=== PATIENT | male | born 1955 | race Caucasian/White ===

== ENCOUNTER 2016-07-16 11:43 | Emergency (ER) | payer BC ==
--- NOTE | ~2016-07-16 | US115 ---
[facility] A Service of [facility] RADIOLOGY TEXT RESULTS PATIENT: FAWAD LUND LOCATION: SED : 59 UNIT #: [id number] AGE: [address]: Husam Stephenson DO SEX: M ORDER DR: [id number] [place] [id number] E MR#: [id number] Acc #: [id number] NAME: FAWAD LUND. : 1955 SEX: M STUDY DATE/TIME: 07/16/2016 12:49 UNIT: SED ROOM: STUDY DESCRIPTION: US Scrotum and Contents Attending Physician: (Er) Husam Stephenson Ordering Physician: AugustoEr) Husam Stephenson Primary Care Physician: Delano Smith M.D. MEDICAL IMAGING REPORT This report is preliminary unless electronic signature is present. EXAM Scrotal ultrasound. DATE OF EXAM 07/16/2016, at 12:49. INDICATIONS Left testicular pain for the last 4 hours with nausea. No trauma. Symptoms have since resolved. TECHNIQUE Hanson-scale, color flow, and spectral Doppler waveform analysis was performed of the scrotum and contents. COMPARISON No comparison. FINDINGS Both testicles show perfusion by Doppler. There is no torsion. There are no intratesticular masses. The right testicle and epididymis are normal. There is a moderate sized hydrocele on the right. On the left side, there is intratesticular cyst measuring about 5 mm in size. The left testicle is hyperemic relative to the right. This would suggest orchitis. The left epididymis is normal. There is a small left hydrocele. IMPRESSION 1. No torsion or testicular mass identified. 2. Mildly hyperemic left testicle suggesting orchitis. 3. Bilateral hydroceles, right larger than left. Dictated by... Kamlesh Amador Jr., M.D. [facility] A Service [facility] RADIOLOGY TEXT RESULTS PATIENT: FAWAD LUND LOCATION: SED : 59 UNIT #: [id number] AGE: [address]: Husam Stephenson DO SEX: M ORDER DR: THIS IS AN ELECTRONICALLY VERIFIED REPORT Kamlesh Amador Jr., M.D. at 07/19/2016 8:00 AM JUSTIN/joshua TD: 07/16/2016 15:44 JOB #: [id number] MEDICAL IMAGING REPORT Page 1 of 1
[~2016-07-16 11:43] MED LIST: FLOMAX0.4 M1 PO; LISINOPRIL
[2016-07-16 11:53] LABS: BASOPHIL# 0.1 X10e3 (0-0.3); BASOPHIL% 0.5 % (0-2.5); EOSINOPHIL# 0.2 X10e3 (0-0.7); EOSINOPHIL% 1.3 % (0.0-7.0); HEMATOCRIT 44.6 % (38.0-50.0); HEMOGLOBIN 15.2 gm/dL (13.0-16.0); LYMPHOCYTE# 1.6 X10e3 (1.0-3.5); LYMPHOCYTE% 12.1 % (17.0-45.0); MEAN CELL VOLUME 95.3 FL (83-96); MEAN CORPUSCULAR HEMOGLOBIN 32.5 PG (28-34); MEAN CORPUSCULAR HGB CONC 34.1 g/dL (30-36); MEAN PLATELET VOLUME 7.6 FL (6.5-11.5); MONOCYTE# 0.7 X10e3 (0-1.0); MONOCYTE% 5.7 % (3.0-12.0); NEUTROPHIL# 10.3 X10e3 (1.5-7.1); NEUTROPHIL% 80.4 % (40-75); PLATELET COUNT 211 X10e3 (140-420); RED BLOOD COUNT 4.68 X10e (3.90-5.60); RED CELL DISTRIBUTION WIDTH 13.6 % (11.0-15.5); WHITE BLOOD COUNT 12.8 X10e3 (4.0-10.5)
[2016-07-16 11:54] LABS: DIFF IND NO
[2016-07-16 12:09] LABS: ALBUMIN SERUM 4.3 g/dL (3.5-5.0); BILIRUBIN, DIRECT 0.2 mg/dL (0.0-0.2); BILIRUBIN,INDIRECT 0.7 mg/dL (0.0-0.9); BILIRUBIN,TOTAL 0.9 mg/dL (0.2-2.0); CREATININE SERUM 0.8 mg/dL (0.6-1.4); GLOM FILT RATE Estimated 98.5 mL/min (>60); POTASSIUM 4.7 mmol/L (3.5-5.1); PROTEIN TOTAL SERUM 7.2 g/dL (6.0-8.3)
[2016-07-16 13:46] LABS: URINE SOURCE CLEAN CATCH
[2016-07-16 13:48] LABS: URINE APPEARANCE CLEAR; URINE BILIRUBIN NEG (NEG); URINE BLOOD 3+ (NEG); URINE COLOR YELLOW; URINE GLUCOSE NEG (NORM); URINE KETONE NEG (NEG); URINE LEUKOCYTE ESTERASE TRACE (NEG); URINE NITRATE NEG (NEG); URINE PH 6.5 (5-8); URINE PROTEIN TRACE (NEG); URINE SPECIFIC GRAVITY 1.015 (1.003-1.035); URINE UROBILINOGEN 0.2 MG/DL (NORM)
[2016-07-16 13:49] LABS: MICRO INDICATED? YES
[2016-07-16 13:58] LABS: URINE RBC 100-200 /[HPF] (0-2)
[2016-07-16 13:59] LABS: CULTURE INDICATED? YES; URINE BACTERIA 1+ (NEG); URINE GRANULAR CAST 0-2 /[HPF]; URINE HYALINE CAST 0-2 /[HPF]; URINE MUCUS PRESENT; URINE SQUAMOUS EPITHELIAL CELL FEW /[HPF]
[2016-07-19 08:13] LABS: CHLAMYDIA TRACH Not Detected (Not Detected); N GONOR Not Detected (Not Detected)
== END 2016-07-16 14:33 | disposition home or self-care (01) ==
LOC: SED 11:43
PROVIDERS: Emergency Medicine
DX: N43.3 Hydrocele, unspecified (principal); N45.2 Orchitis; Z88.5 Allergy status to narcotic agent
CPT/HCPCS: 76870; 80048; 80076; 81003; 85025; 87086; 87491; 87591; 93976; 96372; 99284; J0696

== ENCOUNTER → 2016-08-23 | Outpatient (CLI) | payer BC ==
[~2016-08-23] MED LIST changes: +BACTRIM PO; +OXYCODONE PO
--- NOTE | ~2016-08-23 | CT3 ---
[facility] A Service of [facility] & [facility] RADIOLOGY TEXT RESULTS PATIENT: FAWAD LUND LOCATION: [facility] : 59 UNIT #: [id number] AGE: [address]: NATALIE LEACH APRN SEX: M ORDER DR: [id number] [address] [address] [id number] O MR#: [id number] Acc #: [id number] NAME: FAWAD LUND : 1955 SEX: M STUDY DATE/TIME: 08/23/2016 15:19 UNIT: [facility] ROOM: STUDY DESCRIPTION: CT Abd and Pelv WWo Cont Attending Physician: Natalie Leach Aprn Referring Physician: Natalie Leach Aprn Ordering Physician: Michael Mcmillan M.D. Primary Care Physician: Natalie Leach Aprn MEDICAL IMAGING REPORT This report is preliminary unless electronic signature is present. EXAM CT of the abdomen and pelvis without and with contrast INDICATIONS This patient has had blood in the urine and left abdominal pain radiating to the left testicle for 1 month. Patient had a prior ultrasound on July 16, 2016, which suggested orchitis within the left testicle. TECHNIQUE Axial precontrast imaging was obtained through the abdomen and pelvis followed by arterial and 90-second delayed phase imaging through the kidneys and 5-minute delayed phase imaging through the abdomen and pelvis. This CT exam was performed with one or more of the following radiation dose reduction techniques: Automatic exposure control, adjustment of mA and/or kV according to patient size, and iterative reconstruction. I do think the patient has some background emphysematous changes. This patient is noted to have a stone at the left UPJ. However, it does not appear to be associated with any hydronephrosis. This stone measures up to 1 cm in size. Distal to this, the left ureter is decompressed; no stones are identified on the right and there are no distal ureteral or bladder stones identified. A few tiny low-attenuation lesions are seen within the left kidney, which are really too small to accurately characterize but are favored to represent cysts. Single renal arteries are identified bilaterally, and there may be some minimal narrowing at the origins of both renal arteries. There are single renal collecting systems identified bilaterally. Urinary bladder appears unremarkable. There is a small hiatal hernia. Proximal small bowel appears unremarkable, as are the adrenal glands. Gallbladder is within normal limits, as is the spleen. No focal hepatic lesions are identified. Spleen is within normal limits, as is the pancreas. I do not see any free STS. [facility] A Service of [facility] RADIOLOGY TEXT RESULTS PATIENT: FAWAD LUND LOCATION: [facility] : 59 UNIT #: [id number] AGE: [address]: NATALIE LEACH BIOLOGICAL CHEMIST SEX: M ORDER DR: fluid or adenopathy within the abdomen. There is a small fat-containing umbilical hernia. There is some colonic diverticulosis without evidence of diverticulitis. There are some dystrophic calcifications seen within the prostate gland, no free fluid or adenopathy is seen within the pelvis. Review of bony windows does not demonstrate any aggressive osseous abnormalities. IMPRESSION 1. This patient has a 1-cm nonobstructing stone identified at the left ureteropelvic junction. No distal ureteral or bladder stones are seen, and there are no stones identified on the right. 2. A few scattered low-attenuation lesions are seen within the left kidney, which are favored to represent cysts, although they are too small to accurately characterize. No suspicious renal masses or bladder masses are seen. 3. Also noted but not mentioned in the report is the suggestion of some subtle periureteral soft tissue stranding. Correlation with urinalysis and urine cultures is suggested. Please see the body of the report for any other additional incidental findings. Dictated by... Sharyn Hahn M.D. THIS IS AN ELECTRONICALLY VERIFIED REPORT Sharyn Hahn M.D. at 09/01/2016 3:40 PM AFF/psc TD: 08/30/2016 20:07 JOB #: [id number] MEDICAL IMAGING REPORT Page 1 of 1
[2016-08-23 15:15] LABS: POC - CREATININE 1.11 mg/dL (0.64-1.27); POC - GFR >60.0 mL/min (>60)
== END | disposition home or self-care (01) ==
LOC: SCT 15:00
PROVIDERS: Nurse Practitioner Family
DX: R10.9 Unspecified abdominal pain (principal); R31.9 Hematuria, unspecified; N20.1 Calculus of ureter; N28.89 Other specified disorders of kidney and ureter
CPT/HCPCS: 74178; 82565; Q9967

== ENCOUNTER 2016-09-19 16:41 | Emergency (ER) | payer BC ==
--- NOTE | ~2016-09-19 | CT2 ---
[facility] A Service of [facility] & [facility] RADIOLOGY TEXT RESULTS PATIENT: FAWAD LUND LOCATION: SED : 59 UNIT #: [id number] AGE: [address]: Sindy Hidalgo MD SEX: M ORDER DR: [id number] [place] [id number] E MR#: [id number] Acc #: [id number] NAME: FAWAD LUND. : 1955 SEX: M STUDY DATE/TIME: 09/19/2016 19:18 UNIT: SED ROOM: STUDY DESCRIPTION: CT Abd and Pelv W Cont Attending Physician: Sindy Hidalgo M.D. Ordering Physician: Sindy Hidalgo M.D. Primary Care Physician: Nani Alexander Aprn MEDICAL IMAGING REPORT This report is preliminary unless electronic signature is present. EXAM CT abdomen and pelvis INDICATION Constipation. Generalized abdominal pain for 6 days. Lithotripsy on 09/14/2016. Nausea and vomiting. TECHNIQUE CT of the abdomen and pelvis with p.o. and IV contrast. Coronal and sagittal reconstructions were obtained. This CT examination was performed with one or more of the following radiation dose reduction techniques: automatic exposure control, adjustment of mA and/or kV according to patient size, and iterative reconstruction. COMPARISON CT abdomen and pelvis dated 08/23/2016. FINDINGS ABDOMEN: There is a cast of small stone fragments in the proximal left ureter, approximately 5 cm below the UPJ. These stone fragments measure 0.7 x 0.6 cm in diameter and measure up to 2 cm in length. This results in a moderate hydroureteronephrosis and moderate left renal edema. There is a delayed left nephrogram due to the obstruction. Several small stone fragments remain in the lower pole of the left kidney. The largest measures 4 mm. The liver enhances normally. The gallbladder, pancreas, spleen, and adrenal glands are within normal limits. The bowel is not dilated. There is a small umbilical hernia. The abdominal aorta is normal in caliber. PELVIS: No pelvic mass. There are small bilateral direct inguinal hernias. [facility] A Service of [facility] & [facility] RADIOLOGY TEXT RESULTS PATIENT: FAWAD LUND LOCATION: [facility] [place] : 59 UNIT #: [id number] AGE: [address]: Sindy Hidalgo MD SEX: M ORDER DR: No acute osseous abnormalities. IMPRESSION 1. Large cast of stone fragments in the proximal left ureter resulting in a moderate left hydronephrosis and moderate left renal edema. The stone fragments measure up to 0.7 cm in diameter and the length of stones measures 2 cm. 2. Nonobstructing left renal calculi. Dictated by... Ty Gallo M.D. THIS IS AN ELECTRONICALLY VERIFIED REPORT Ty Gallo M.D. at 09/20/2016 10:51 AM ROGELIO/dominic TD: 09/20/2016 09:39 JOB #: [id number] MEDICAL IMAGING REPORT Page 1 of 1
[~2016-09-19 16:41] MED LIST changes: -BACTRIM PO; -OXYCODONE PO
[2016-09-19] MEDS ORDERED: BACTRIM PO (16:46)
[2016-09-19] MEDS ORDERED: OXYCODONE PO (16:46)
[2016-09-19 17:49] LABS: BASOPHIL# 0.1 X10e3 (0-0.3); BASOPHIL% 0.5 % (0-2.5); DIFF IND NO; EOSINOPHIL# 0.1 X10e3 (0-0.7); EOSINOPHIL% 0.9 % (0.0-7.0); HEMATOCRIT 42.6 % (38.0-50.0); HEMOGLOBIN 14.7 gm/dL (13.0-16.0); LYMPHOCYTE% 7.9 % (17.0-45.0); MEAN CORPUSCULAR HEMOGLOBIN 32.8 PG (28-34); MEAN CORPUSCULAR HGB CONC 34.6 g/dL (30-36); MEAN PLATELET VOLUME 7.4 FL (6.5-11.5); MONOCYTE# 1.2 X10e3 (0-1.0); MONOCYTE% 9.2 % (3.0-12.0); NEUTROPHIL# 10.3 X10e3 (1.5-7.1); NEUTROPHIL% 81.5 % (40-75); PLATELET COUNT 231 X10e3 (140-420); RED BLOOD COUNT 4.48 X10e (3.90-5.60); RED CELL DISTRIBUTION WIDTH 13.1 % (11.0-15.5); WHITE BLOOD COUNT 12.7 X10e3 (4.0-10.5)
[2016-09-19 18:18] LABS: BILIRUBIN, DIRECT 0.1 mg/dL (0.0-0.2); BILIRUBIN,INDIRECT 0.5 mg/dL (0.0-0.9); BILIRUBIN,TOTAL 0.6 mg/dL (0.2-2.0); BUN/CREATININE RATIO 14.28; CALCIUM SERUM 8.9 mg/dL (8.4-10.2); CREATININE SERUM 1.4 mg/dL (0.6-1.4); POTASSIUM 4.5 mmol/L (3.5-5.1); PROTEIN TOTAL SERUM 7.5 g/dL (6.0-8.3)
[2016-09-19 18:49] LABS: URINE APPEARANCE CLEAR; URINE BLOOD 2+ (NEG); URINE COLOR YELLOW; URINE GLUCOSE NEG (NORM); URINE LEUKOCYTE ESTERASE NEG (NEG); URINE NITRATE NEG (NEG); URINE PH 5.5 (5-8); URINE PROTEIN TRACE (NEG); URINE SPECIFIC GRAVITY 1.015 (1.003-1.035); URINE UROBILINOGEN 0.2 MG/DL (NORM)
[2016-09-19 18:53] LABS: MICRO INDICATED? YES; URINE BILIRUBIN NEG (NEG); URINE KETONE 2+ (NEG)
[2016-09-19 18:54] LABS: CULTURE INDICATED? NO; URINE BACTERIA NEG (NEG); URINE MUCUS PRESENT; URINE SOURCE CLEAN CATCH; URINE SQUAMOUS EPITHELIAL CELL FEW /[HPF]; URINE WBC 0-2 /[HPF] (0-5)
== END 2016-09-19 23:05 | disposition home or self-care (01) ==
LOC: SED 16:41
PROVIDERS: Emergency Medicine
DX: N13.2 Hydronephrosis with renal and ureteral calculous obstruction (principal); Z87.442 Personal history of urinary calculi; Z90.49 Acquired absence of other specified parts of digestive tract; F17.210 Nicotine dependence, cigarettes, uncomplicated; Z88.8 Allergy status to other drugs, medicaments and biological substances
CPT/HCPCS: 36415; 74177; 80048; 80076; 81003; 83605; 85025; 96361; 96374; 96375; 96376; 99284; J1170; J1200; J2405; J2765; J3010; J3360; Q9967